=== PATIENT | male | born 1960 | race Caucasian/White ===

== ENCOUNTER → 2017-12-04 | Outpatient (CLI) | payer BC | END | disposition home or self-care (01) | LOC: CARD 11-13 14:00 | DX: I35.1 Nonrheumatic aortic (valve) insufficiency (principal); I34.0 Nonrheumatic mitral (valve) insufficiency; I51.7 Cardiomegaly; R06.09 Other forms of dyspnea ==

== ENCOUNTER → 2018-02-25 | Outpatient (CLI) | payer BC ==
[~2018-02-25] MED LIST: ALLOPURINOL300 MG PO; CLARITIN10 MG PO; ETODOLAC500 MG PO; HYDR25T PO; SIMVASTATIN40 MG PO; SYNTHROID,LEV125 MCG PO; VITAMIN D5000 UNI1 PO; ZESTORETIC 20-1 EAC1 PO
[2018-02-25 07:50] LABS: CREATININE 1.02 mg/dL (0.70-1.30)
== END | disposition home or self-care (01) ==
LOC: LAB 07:22
PROVIDERS: Radiology Diagnostic Radiology
DX: I10 Essential (primary) hypertension (principal); R07.2 Precordial pain

== ENCOUNTER → 2018-02-26 | Outpatient (CLI) | payer BC | END | disposition home or self-care (01) | LOC: CT 02:35 | DX: I65.09 Occlusion and stenosis of unspecified vertebral artery (principal); I25.10 Atherosclerotic heart disease of native coronary artery without angina pectoris; I10 Essential (primary) hypertension; M25.476 Effusion, unspecified foot ==

== ENCOUNTER → 2018-03-05 | Outpatient (CLI) | payer BC ==
--- NOTE | ~2018-03-05 | ST ---
[place], [place] EXERCISE STRESS TEST REPORT [id number] UNIT #: [id number] ROOM: DOCTOR: KAROLYN CASTILLO MD BIRTHDATE: [birth year] DOS: 03/05/2018 EXERCISE STRESS NUCLEAR PERFUSION STUDY INDICATIONS: Dyspnea, aortic valve disease. PROCEDURE: The patient walked on a full Mino protocol for 7 minutes 50 seconds and stopped for fatigue along with a target heart rate that was appropriate. His resting heart rate of 71 bra[place] to 140, which represented 86% of his maximum predicted heart rate. The resting blood pressure 128/90 bra[place] to 166/90. The patient did have dyspnea, but no chest pain. The resting electrocardiogram was normal. With exercise, he had no diagnostic ST depression. One minute prior to completion of the exercise protocol, he was given radionuclide intravenously. IMPRESSION: 1. Adequate exercise capacity without chest pain or diagnostic electrocardiographic changes. 2. Radionuclide administered. Please see the separate imaging report for further details of the patient's stress test results. KAROLYN CASTILLO MD CM:STRESS:EXERCISE STRESS TEST REPORT [id number] KAROLYN CASTILLO MD
== END | disposition home or self-care (01) ==
LOC: CARD 02:10
DX: I35.9 Nonrheumatic aortic valve disorder, unspecified (principal); R94.31 Abnormal electrocardiogram [ECG] [EKG]

== ENCOUNTER 2018-12-18 15:32 | Emergency (ER) | payer BC ==
[~2018-12-18] VITALS: Ht 167.6 cm; Wt 103.0 kg
== END 2018-12-18 18:07 | disposition home or self-care (01) ==
LOC: ED 15:32
DX: S01.81XA Laceration without foreign body of other part of head, initial encounter (principal); G93.0 Cerebral cysts; Z79.899 Other long term (current) drug therapy; W22.03XA Walked into furniture, initial encounter; Y93.89 Activity, other specified; Y92.89 Other specified places as the place of occurrence of the external cause; Y99.8 Other external cause status

== ENCOUNTER → 2019-12-31 | Outpatient (CLI) | payer BC | END | disposition home or self-care (01) | LOC: CT 12-30 14:00 | PROVIDERS: ATTEND Otolaryngology | DX: J32.4 Chronic pansinusitis (principal) ==

== ENCOUNTER → 2021-03-05 | Outpatient (CLI) | payer BC ==
[~2021-03-05] MED LIST changes: +ADIPEX-P37.5 M2 PO; +FLONASE ALLERG9.9 ML NAS
== END | disposition home or self-care (01) ==
LOC: COVID19 16:46
PROVIDERS: ATTEND Internal Medicine
DX: Z11.52 Encounter for screening for COVID-19 (principal)

== ENCOUNTER → 2021-03-08 | Day surgery (SDC) | payer BC ==
[~2021-03-08] VITALS: Ht 167.6 cm; Wt 104.3 kg
[2021-03-08 08:33] VITALS: BP 136/85
[2021-03-08 10:35] VITALS: BP 149/94
[2021-03-08 10:50] VITALS: BP 146/91
[2021-03-08 11:05] VITALS: BP 144/87
== END ==
LOC: SDC 03-05 10:15
PROVIDERS: ATTEND Surgery
DX: Z12.11 Encounter for screening for malignant neoplasm of colon (principal); D12.4 Benign neoplasm of descending colon; D12.5 Benign neoplasm of sigmoid colon; K57.30 Diverticulosis of large intestine without perforation or abscess without bleeding; D23.71 Other benign neoplasm of skin of right lower limb, including hip; D18.01 Hemangioma of skin and subcutaneous tissue; E78.00 Pure hypercholesterolemia, unspecified; I10 Essential (primary) hypertension; M10.9 Gout, unspecified; M19.012 Primary osteoarthritis, left shoulder; M19.011 Primary osteoarthritis, right shoulder; Z79.899 Other long term (current) drug therapy

== ENCOUNTER → 2022-07-08 | Outpatient (CLI) | payer OTHER | END | disposition home or self-care (01) | LOC: RAD 12:29 | PROVIDERS: ATTEND Family Medicine | DX: M25.552 Pain in left hip (principal) ==

== ENCOUNTER → 2022-10-04 | Outpatient (CLI) | payer OTHER | END | disposition home or self-care (01) | LOC: MRI 00:26 | PROVIDERS: ATTEND Orthopaedic Surgery | DX: M47.816 Spondylosis without myelopathy or radiculopathy, lumbar region (principal); M48.061 Spinal stenosis, lumbar region without neurogenic claudication ==